=== PATIENT | male | born 1965 | race Caucasian/White ===

== ENCOUNTER 2020-07-22 17:40 | Emergency (ER) | payer BC ==
--- NOTE | 2020-07-22 19:37 | EDM.PDOC ---
ED HPI GENERAL MEDICAL PROBLEM - General Chief Complaint: Upper Extremity Injury/Pain Stated Complaint: DISLOCATED RT RING FINGER Time Seen by Provider: 07/22/20 18:39 - History of Present Illness INITIAL COMMENTS - FREE TEXT/NARRATIVE: Jovanni is a 55-year-old male presenting to the ED for evaluation of a dislocated left ring finger at the proximal interpharyngeal joint. The patient was working on a stepladder and apparently had a mishap where his finger became entangled in it causing it to dislocate. The patient has intact distal sensation but has marked reduction in range of motion due to the dislocation at the PIP. He d enies any other injuries. This is his dominant hand. Onset: Today Right Finger-Ring Pain Score (Numeric/FACES): 3 - Related Data Allergies Allergy/AdvReac Type Severity Reaction Status Date / Time No Known Allergies Allergy Verified 07/22/20 18:42 Home Meds: Home Meds Famotidine 1 tab PO ASDIRECTED PRN 07/22/20 [History] Past Medical History Cardiovascular History: Reports: Other (See Below) Other Cardiovascular History: OBLATION FOR WPW - Past Surgical History GI Surgical History: Reports: Hernia, Inguinal Social & Family History - Tobacco Use Tobacco Use Status *Q: Never Tobacco User Review of Systems - Review of Systems Review Of Systems: See Below Constitutional: Reports: No Symptoms Eyes: Reports: No Symptoms Ears: Reports: No Symptoms Nose: Reports: No Symptoms Mouth/Throat: Reports: No Symptoms Respiratory: Reports: No Symptoms Cardiovascular: Reports: No Symptoms GI/Abdominal: Reports: No Symptoms Musculoskeletal: Reports: Hand Pain (Dislocation of the right fourth finger at the PIP.) Skin: Reports: No Symptoms Neurological: Reports: No Symptoms Psychiatric: Reports: No Symptoms ED EXAM, GENERAL - Physical Exam Exam: See Below Exam Limited By: No Limitations General Appearance: Alert, WD/WN, No Apparent Distress, Anxious Peripheral Pulses: 2+: Radial (L), Radial (R) Extremities: Limited Range of Motion (Dislocation of the right fourth finger at the PIP with lateral displacement. This results in inability to extend or flex the finger.) Neurological: Alert, Oriented, CN II-XII Intact, Normal Cognition, Normal Gait, Normal Reflexes, No Motor/Sensory Deficits Skin Exam: Warm, Dry, Intact, Normal Color, No Rash ED TRAUMA EXTREMITY PROCEDURES - Joint Reduction Right Fingers Sedation: Digital Block Local Anesthesia - Lidocaine (Xylocaine): 1% Plain Local Anesthetic Volume: 3cc Pre-Procedure NV Status: Normal Post-Procedure NV Status: Normal Technique: Traction/Counter Traction Number of Attempts: 2 Post-Reduction Imaging: Completely Reduced, Fracture Seen (Small avulsion fracture or calcification of the flexor tendon seen on the lateral view at the middle phalanx of the fourth digit.) Joint Reduction Complications: No - Splinting Right 4th Digit Pre-Procedure NV Status: Normal Post-Procedure NV Status: Normal Splint Material: Aluminum-Foam Splint Design: Volar Applied & Form Fitted By: Nurse Provider Post-Splint Application NV Check: NV Status Normal, Good Position Complications: No Course - Vital Signs Last Recorded V/S: Last Vital Signs Temp 36.5 C 07/22/20 18:47 Pulse 94 07/22/20 18:47 Resp 12 07/22/20 18:47 BP 143/90 H 07/22/20 18:47 Pulse Ox 97 07/22/20 18:47 - Orders/Labs/Meds Orders: Active Orders 24 hr Category Date Time Status Fingers Fourth Digit Rt F8 [CR] Stat Exams 07/22/20 18:21 Taken Fingers Fourth Digit Rt F8 [CR] Stat Exams 07/22/20 19:02 Taken Meds: Medications Discontinued Medications Generic Name Dose Route Start Last Admin Trade Name Allegra PRN Reason Stop Dose Admin Lidocaine HCl 5 ml 07/22/20 18:26 07/22/20 18:48 Xylocaine-Mpf 1% INJECT 07/22/20 18:27 5 ml ONETIME ONE Administration Departure - Departure Time of Disposition: 19:37 Disposition: Home, Self-Care 01 Condition: Good Clinical Impression: Dislocation, finger, interphalangeal joint - Discharge Information *PRESCRIPTION DRUG MONITORING PROGRAM REVIEWED*: Not Applicable *COPY OF PRESCRIPTION DRUG MONITORING REPORT IN PATIENT NAVEEN: Not Applicable Instructions: Finger or Thumb Dislocation, [id number] Referrals: PCP,None [Primary Care Provider] - Care Plan Goals: You may take Tylenol or ibuprofen for any discomfort. Please leave the splint in place unless showering. You should wear the splint for the next 5 to 7 days to allow the ligaments to start to heal. After which, you may start to do gentle range of motion exercises. I would recommend using a tennis ball. I would expect after 10 to 14 days you can resume normal activity without any difficulty. You will want to ice and elevate the finger today and tomorrow to help reduce swelling. Sepsis Event Note (ED) - Evaluation Sepsis Screening Result: No Definite Risk - Focused Exam Vital Signs: Vital Signs Temp Pulse Resp BP Pulse Ox 07/22/20 18:47 36.5 C 94 12 143/90 H 97 07/22/20 18:09 36.5 C 94 12 143/90 H 97 - My Orders Last 24 Hours: My Active Orders 07/22/20 18:21 Fingers Fourth Digit Rt F8 [CR] Stat 07/22/20 19:02 Fingers Fourth Digit Rt F8 [CR] Stat - Assessment/Plan Last 24 Hours: My Active Orders 07/22/20 18:21 Fingers Fourth Digit Rt F8 [CR] Stat 07/22/20 19:02 Fingers Fourth Digit Rt F8 [CR] Stat
--- NOTE | 2020-07-24 12:03 | CR ---
Fingers Fourth Digit Rt F8, Fingers Fourth Digit Rt F8 CLINICAL HISTORY: Dislocation FINDINGS: There is a dislocation at the PIP joint with ulnar direction displacement. No fracture seen IMPRESSION: Fourth PIP joint dislocation Fingers Fourth Digit Rt F8 CLINICAL HISTORY: Postreduction FINDINGS: There is been reduction of the fourth PIP dislocation. There is a small ossific density along the anterior cortical margin of the middle phalanx which is likely a small avulsion fracture. IMPRESSION: Post reduction. AP dislocation Small periarticular avulsion fracture anteriorly
== END 2020-07-22 19:45 | disposition home or self-care (01) ==
LOC: JP.ED 17:40
DX: S63.284A Dislocation of proximal interphalangeal joint of right ring finger, initial encounter (principal); X58.XXXA Exposure to other specified factors, initial encounter
CPT/HCPCS: 26742; 73140; 99283; J2001

== ENCOUNTER 2023-11-21 06:47 | Day surgery (SDC) | payer BC, OTHER ==
[2023-11-21] MEDS ORDERED: Propofol 200 MG/20 ML SDV ONE (07:20)
[2023-11-21] MEDS ORDERED: fentaNYL 50 MCG/ML SDV ONE (07:20)
[2023-11-21] MEDS: Sodium Chloride 0.9% 1,000 ML IV SCH (07:20)
[2023-11-21] MEDS ORDERED: Midazolam 1 MG/ML 2 ML SDV ONE (07:20)
== END 2023-11-21 09:30 | disposition home or self-care (01) ==
LOC: JP.SDS 06:47
PROVIDERS: ATTEND Surgery
DX: Z12.11 Encounter for screening for malignant neoplasm of colon (principal); D12.2 Benign neoplasm of ascending colon; K21.9 Gastro-esophageal reflux disease without esophagitis; Z80.0 Family history of malignant neoplasm of digestive organs
CPT/HCPCS: 00811; 45380; J2250; J2704; J3010; J7030; 88305